=== PATIENT | female | born 2000 | race Caucasian/White ===

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

== ENCOUNTER 2020-11-27 21:22 | Emergency (ER) | payer OTHER ==
[2020-11-27] MEDS ORDERED: methylPREDNISolone Sod Succ/PF 125 MG/2 ML VIAL ONE (21:44)
[2020-11-27] MEDS ORDERED: Famotidine/PF 20 mg/2ml Vial ONE (21:44)
[2020-11-27] MEDS ORDERED: diphenhydrAMINE 50 MG/ML VIAL ONE (21:44)
[2020-11-27] MEDS ORDERED: Dexamethasone 10 MG/ML VIAL ONE (23:09)
== END 2020-11-28 00:56 | disposition home or self-care (01) ==
LOC: ERS 21:22
DX: T78.1XXA Other adverse food reactions, not elsewhere classified, initial encounter (principal); Z86.718 Personal history of other venous thrombosis and embolism; Z79.899 Other long term (current) drug therapy
CPT/HCPCS: 96374; 96375; J1100; J1200; J2930; S0028

== ENCOUNTER 2022-03-10 15:30 | Emergency (ER) | payer OTHER ==
[2022-03-10] MEDS ORDERED: Bacitracin 1 PK ONE (16:58)
== END 2022-03-10 17:01 | disposition home or self-care (01) ==
LOC: ERS 15:30
DX: S61.052A Open bite of left thumb without damage to nail, initial encounter (principal); W55.01XA Bitten by cat, initial encounter

== ENCOUNTER 2024-12-19 21:57 | Emergency (ER) | payer OTHER, SELFPAY ==
[2024-12-19 23:32] LABS: Pregnancy Test - Urine (BHCG) Negative (Negative); Pregu Control Background? CLEAR/WHITE (CLR/WHITE); Pregu Control Bar Appear? YES (CONTROL BAR)
[2024-12-19 23:52] LABS: Bacteria/HPF None Seen HPF (None Seen); CAUTI Indications for Culture Acute Hematuria; Glucose, Urine (Dipstick) Normal (Negative); Leukocyte Negative Leu/uL (Negative); Protein, Urine (Dipstick) Negative (Neg-Trace); RBC/HPF 0-3 HPF (0-3); Specific Gravity, Urine 1.018 (1.002-1.036); WBC/HPF 0-3 HPF (0-3)
[2024-12-19 23:59] LABS: Urine Culture Reflex No No
== END 2024-12-20 00:18 | disposition home or self-care (01) ==
LOC: ERS 21:57
DX: T83.32XA Displacement of intrauterine contraceptive device, initial encounter (principal)
CPT/HCPCS: 76856; 81001; 81025